=== PATIENT | female | born 1985 | race Caucasian/White ===

== ENCOUNTER 2020-10-06 14:42 | Emergency (ER) | payer BC, MEDICAID, SELFPAY ==
[2020-10-06 14:56] VITALS: BP 127/87; PULSE 88; RESP 19; TEMP 36.6; O2SAT 98; BMI 36.2
--- NOTE | 2020-10-06 15:12 | HMH.EDUTC ---
[facility] Disposition Clinical Impression: Close exposure to COVID-19 virus Disposition: Home, Self-Care Condition on Discharge: Good Instructions: Preventing the Spread of Coronavirus Discharge Instructions Additional Instructions: *Monitor Temp, Over the counter Motrin or Tylenol as directed/as needed Tylenol every 4 hours and Motrin every 6 hours (as long as your family doctor has told you that you can take it) for fever or pain. and straight to ER if unable to lower temp less than 101.0 after medication given *Warm salt water gargles may help to soothe the throat *Throat Lozenges *Warm fluids like tea with honey may help to soothe the throat *Sleep elevated *Humidifier/Vaporizer Follow up IMMEDIATELY for new or worsening symptoms or no Noticeable improvement over the next 48-72 hours. 911 for difficulty breathing or swallowing You were tested for today for COVID19 your test result should be back in the next 24-48 hours, you may call to the [facility] to see if your test results are back in the next 48 hours [phone] [facility] hours are 9am-9pm You was given a handout with instructions for Self Quarantine and Self isolation for while you wait on test results and what to do if they are positive If you are positive the Health Dept will be contacting you also Referrals: PCP,No [Primary Care Provider] - As needed Forms: Work/School Release Time of Disposition: 15:13 Medical Decision Making - Freddie Inquiry Pt receiving controlled substance: No Freddie was queried for this patient: No Vital Signs: 10/06/20 14:56 Temperature 97.8 F Temperature Source Oral Pulse Rate [Radial] 88 Respiratory Rate 19 Blood Pressure [Right Arm] 127/87 Blood Pressure Mean [Right Arm] 100 Blood Pressure Source [Right Arm] Automatic Cuff Blood Pressure Position [Right Arm] Sitting 02 Sat by Pulse Oximetry 98 Oxygen Delivery Method Room Air Orders (Tests/Meds): ORDERS Category Date Time Status Covid-19 Nasal PCR Sendout [facility] 10/06/20 14:48 Ordered [facility] HPI - General Stated complaint: Covid test Time Seen by Provider: 10/06/20 15:12 Mode of Arrival: Ambulatory Source of Information: Patient Limitations: No Limitations Description of Symptoms (Recalled from Triage Doc. by RN): covid exposure, no symptoms HEENT Symptoms (Recalled from RN notes): No Resp Symptoms (Recalled from RN notes): No Skin Symptoms (Recalled from RN notes): No MS Symptoms (Recalled from RN notes): No Functional Status (Recalled from RN notes): wnl - History of Present Illness Provider Complaint: Patient states that she brought someone into the [facility] to be tested for COVID States that he tested positive and she was around him States taht she isnt having any symptoms but wants to get tested - Related Data Allergies Allergy/AdvReac Type Severity Reaction Status Date / Time azithromycin Allergy Verified 10/06/20 15:00 codeine Allergy Verified 10/06/20 15:00 Penicillins Allergy Verified 10/06/20 15:00 Sulfa (Sulfonamide Allergy Verified 10/06/20 15:00 Antibiotics) - Worker's Comp Is this a Worker's Comp case?: No [facility] History - Hepatitis A Screen Drug use history?: No High risk sexual behaviors?: No History of sexually transmitted infection?: No Currently employed?: No Childcare worker?: No Do you have indoor plumbing?: Yes Do you have electricity?: Yes Attestation statement:: This patient has been screened for Hepatitis A risk factors. I have reviewed the patient's past medical history: Yes - Social History Alcohol Intake: never Occupational Status: other ROS Obtained: Yes All systems reviewed & no additional complaints, Yes Systems reviewed as appropriate & no additional complaints - Constitutional Constitutional: Reports system reviewed and no additional complaints, except as docu, Denies body ache, Denies chills, Denies fever(s), Denies headache(s) - ENT Ears, Nose, Mouth, and Throat: Reports system reviewed and
[2020-10-06 15:53] VITALS: BP 127/87; PULSE 88; RESP 19; TEMP 36.6; O2SAT 98
[2020-10-08 14:09] LABS: Covid-19 Nasal PCR Sendout Lex Not Detected
== END 2020-10-06 15:54 | disposition home or self-care (01) ==
PROVIDERS: Emergency Provider Nurse Practitioner; PCP Family Medicine
DX: Z20.828 Contact with and (suspected) exposure to other viral communicable diseases (principal)
CPT/HCPCS: 99201; U0004

== ENCOUNTER 2021-08-17 03:43 | Emergency (ER) | payer BC, SELFPAY ==
[2021-08-17 04:03] VITALS: BP 143/103; PULSE 83; RESP 16; TEMP 37; O2SAT 99; BMI 34.7
--- NOTE | 2021-08-17 04:19 | HMH.EDHA ---
ED Disposition Clinical Impression: Migraine Qualifiers: Migraine type: unspecified Status migrainosus presence: without status migrainosus Intractability: not intractable Qualified Code(s): G43.909 - Migraine, unspecified, not intractable, without status migrainosus Disposition: Home, Self-Care Condition on Discharge: Good Instructions: DI for Migraine Additional Instructions: fluids and see pcp for follow up Referrals: Provider,Referral, MD [Primary Care Provider] - - Critical Care Critical Care Time: No Attestation: On 08/17/21, the high probability of a clinically significant, sudden or life threatening deterioration of the following system(s) required my full and direct attention, intervention and personal management. The time I documented below is in addition to time spent performing reported procedures but includes the following listed in this critical care notation. Medical Decision Making - Medical Records Medical records reviewed: Yes: I reviewed the patient's medical records. - Freddie Inquiry Pt receiving controlled substance: No Vital Signs: 08/17/21 04:03 Temperature 98.6 F Temperature Source Oral Pulse Rate [Apical] 83 Respiratory Rate 16 Blood Pressure [Right Arm] 143/103 H Blood Pressure Mean [Right Arm] 116 Blood Pressure Source [Right Arm] Automatic Cuff Blood Pressure Position [Right Arm] Sitting 02 Sat by Pulse Oximetry 99 Oxygen Delivery Method Room Air - Lab Data Lab results reviewed: Yes: I reviewed the patient's lab results. Orders (Tests/Meds): ED MEDICATIONS Generic Name Dose Route Start Last Admin Trade Name Freq PRN Reason Stop Dose Admin Sodium Chloride 1,000 mls @ 999 mls/hr 08/17/21 04:15 08/17/21 04:12 Sod Chlor 0.9% 1000ml Bag IV 08/17/21 05:15 999 mls/hr .Q1H1M ALPA Administration Discontinued Medications Generic Name Dose Route Start Last Admin Trade Name Freq PRN Reason Stop Dose Admin Ketorolac Tromethamine 30 mg 08/17/21 04:09 08/17/21 04:12 Ketorolac 30mg/Ml Vial IV 08/17/21 04:10 30 mg ONCE ONE Administration Methylprednisolone Sodium Succinate 125 mg 08/17/21 04:09 08/17/21 04:12 Methylprednisolone Sod Succ 125mg Vial IV 08/17/21 04:10 125 mg ONCE ONE Administration Ondansetron HCl 4 mg 08/17/21 04:09 08/17/21 04:12 Ondansetron 4mg/2ml Vial IV 08/17/21 04:10 4 mg ONCE ONE Administration Medical Decision Narrative: has known migraine with stable exam - no indications for ct head Headache HPI - General Chief Complaint: Headache Stated Complaint: BLUNT,Nausea Time Seen by Provider: 08/17/21 04:19 Mode of Arrival: Ambulatory Source of Information: Patient, Medical Record Limitations: No Limitations Description of Symptoms (Recalled from ER Triage Doc. by RN): patient states she has had a migraine for 4 days. States that it has not eased up. Woke up this morning at 0200 with nausea. States that she is unable to vomit due to a suhail fundoplication surgery that she has had in the past. Patient states that she has taken several different medications over the weekend but nothing has eased the pain. - History of Present Illness HPI Narrative: has headache over the last 4 days with nausea - no fever/trauma/rash and no focal neuro sx - MD Complaint: migraine Onset (ago): day(s) Onset description: gradual Location: left, frontal, temporal Severity: similar to previous episodes Quality: similar to previous headaches Context: occurred at rest Associated symptoms: none Treatments prior to arrival: acetaminophen, ibuprofen, prescription analgesic, migraine medication - Related Data Allergies Allergy/AdvReac Type Severity Reaction Status Date / Time azithromycin Allergy Verified 10/06/20 15:00 codeine Allergy Verified 10/06/20 15:00 Penicillins Allergy Verified 10/06/20 15:00 Sulfa (Sulfonamide Allergy Verified 10/06/20 15:00 Antibiotics) [facility] History - Hepatitis A Screen D
[2021-08-17 05:00] VITALS: BP 145/103; PULSE 83; RESP 18; TEMP 37; O2SAT 99
== END 2021-08-17 05:01 | disposition home or self-care (01) ==
PROVIDERS: Emergency Provider Emergency Medicine
DX: G43.909 Migraine, unspecified, not intractable, without status migrainosus (principal)
CPT/HCPCS: 96365; 96375; 99281; J2405

== ENCOUNTER → 2021-11-26 08:52 | Outpatient (CLI) | payer BC, SELFPAY ==
[2021-11-27 15:11] LABS: Covid-19 Nasal PCR Sendout Lex NOT DETECTED
== END ==
PROVIDERS: Visit Provider Nurse Practitioner
DX: Z20.822 Contact with and (suspected) exposure to COVID-19 (principal)
CPT/HCPCS: C9803; U0004; U0005

== ENCOUNTER 2021-12-29 20:55 | Emergency (ER) | payer BC, SELFPAY ==
[2021-12-29 20:57] VITALS: BP 128/93; PULSE 118; RESP 22; TEMP 37.4; O2SAT 99; BMI 34.0
[2021-12-29 21:29] VITALS: BMI 34.0
[2021-12-29 21:30] VITALS: BP 128/93; PULSE 89; RESP 20; O2SAT 98
--- NOTE | 2021-12-29 21:50 | CT_ITS ---
PROCEDURE INFORMATION: Exam: CT Abdomen And Pelvis With Contrast Exam date and time: 12/29/2021 9:50 PM Age: 36 years old Clinical indication: Abdominal pain and other: Pelvic; Additional info: Pelvic pain w/ nausea TECHNIQUE: Imaging protocol: Computed tomography of the abdomen and pelvis with contrast. Radiation optimization: All CT scans at this facility use at least one of these dose optimization techniques: automated exposure control; mA and/or kV adjustment per patient size (includes targeted exams where dose is matched to clinical indication); or iterative reconstruction. Contrast material: ISOVUE; Contrast volume: 75 ml; Contrast route: IV; COMPARISON: No relevant prior studies available. FINDINGS: PANCREATICOHEPATOBILIARY: Probable diffuse fatty infiltration. No significant intra-or extrahepatic biliary ductal dilation. Cholecystectomy clips in the gallbladder fossa. Pancreas and spleen are unremarkable. . GENITOURINARY: No adrenal mass. Indeterminate renal cystic nodule(s). Nonobstructive punctate LEFT renal stone(s) measuring 1-3 mm. Mild fullness of the renal collecting systems and ureters bilaterally with 2 mm calculus within the urinary bladder adjacent to the LEFT vesicoureteric junction. Partially distended urinary bladder. Uterus is normal, ovarian cysts/follicles. No free fluid in the pelvis. . GASTROINTESTINAL: Evidence of colonic diverticulosis. Prominent air and fluid-filled loops of proximal small bowel in the LEFT upper abdomen likely within normal limits. Wall thickening of the distal thoracic esophagus suggestive of esophagitis/reflux. No free intraperitoneal air or fluid collection. A normal APPENDIX is visualized. . OTHER STRUCTURES: Aorta appears unremarkable without evidence of aortic aneurysm. Normal size and mildly enlarged mesenteric/retroperitoneal lymph nodes. Focal periumbilical hernia containing fat with soft tissue thickening without fluid collection. IMPRESSION: 1. Findings suggestive of recent passage of ureteric calculus versus 2 mm calculus at LEFT vesicoureteric junction. Recommend correlation with urinary analysis. 2. Other nonemergent/incidental findings as described.
[2021-12-29 21:52] LABS: Microscopic, Urine URINE MICROSCOPIC (MICROSCOPIC)
[2021-12-29 22:00] VITALS: BP 116/78; PULSE 82; RESP 23; O2SAT 100
[2021-12-29 22:03] LABS: Basophils # 0.1 K/mm3 (0-0.2); Basophils % 0.4 % (0.1-2.0); Eosinophils # 0.1 K/mm3 (0.0-0.4); Eosinophils % 0.7 % (0.1-12.0); Hematocrit 41.2 % (37.0-47.0); Hemoglobin 12.8 g/dL (12.2-16.2); Lymphocytes # 1.6 K/mm3 (0.7-4.5); Lymphocytes % 11.7 % (10-50); Mean Corpuscular HGB Conc 31.1 g/dL (31.8-35.4); Mean Corpuscular Hemoglobin 28.6 pg (27.0-31.2); Mean Corpuscular Volume 91.8 fl (81-99); Mean Platelet Volume 9.1 fl (7.4-10.4); Monocytes # 0.1 K/mm3 (0.1-1.0); Monocytes % 0.9 % (1.7-9.3); Neutrophils # 11.5 K/mm3 (1.8-7.8); Neutrophils % 86.3 % (37.0-80.0); Platelet Count 280 K/mm3 (142-424); Red Blood Count 4.49 M/mm3 (4.20-5.40); Red Cell Distribution Width 14.3 % (11.5-17.5); White Blood Count 13.3 K/mm3 (4.8-10.8)
[2021-12-29 22:13] LABS: Strep Scrn Group A (Rapid) Negative (Negative)
[2021-12-29 22:14] LABS: MANUAL DIFFERENTIAL MANUAL DIFFERENTIAL (MANUAL DIFF)
[2021-12-29 22:18] LABS: Alanine Aminotransferase 21 U/L (12-78); Alkaline Phosphatase 51 U/L (38-126); Amylase 63 U/L (30-110); Anion Gap 14.3 mEq/L (5-15); Aspartate Amino Transferase 33 U/L (14-36); Bilirubin,Total 1.2 mg/dl (0.2-1.3); Blood Urea Nitrogen 13 mg/dl (7-17); Carbon Dioxide 21 mmol/L (22.0-30.0); Chloride 107 mmol/L (98-107); Creatinine Clearance Estimated 151 mL/min (50-200); Estimated Glomerular Filt Rate 96 ml/min (>60); GFR (African American) 116 ML/MIN (>60); Glucose 102 mg/dl (74-100); Lipase 47 U/L (23-300); Potassium 3.3 mmoL/L (3.5-5.1); Sodium 139 mmol/L (136-145)
[2021-12-29 22:23] LABS: C-Reactive Protein 1.2 mg/L (0-4)
[2021-12-29 22:27] LABS: Total Protein,Serum 11.8 g/dl (6.3-8.2)
[2021-12-29 22:28] LABS: HCG Qualitative, Serum Negative (Negative)
[2021-12-29 22:30] VITALS: BP 111/65; PULSE 87; RESP 17; O2SAT 99
[2021-12-29 22:36] LABS: Lactic Acid 1.5 mmol/L (0.7-2.1)
[2021-12-29 22:40] LABS: Procalcitonin < 0.030 ng/mL (0.0-2.0)
[2021-12-29 22:44] LABS: Albumin Level > 6.0 g/dl (3.5-5.0); Globulin 5.8 g/dL (1.3-3.2)
[2021-12-29 22:53] LABS: Appearance,Urine CLEAR (Clear); Bilirubin,Urine Negative (Negative); Blood, Urine Negative (Negative); Color,Urine ORANGE (Yellow); Glucose,Urine (UA) 1+ (Negative); Ketones,Urine Negative (Negative); Leukocyte Esterase,Urine TRACE (Negative); Nitrate,Urine POSITIVE (Negative); PH,Urine 5.5 (5.0-8.5); Protein,Urine 2+ (Negative); Specific Gravity, Urine >= 1.030 (1.005-1.030); Urobilinogen,Urine >=8.0 EU/dl (0.2)
[2021-12-29 23:00] VITALS: BP 113/73; PULSE 78; RESP 20; O2SAT 99
[2021-12-29 23:14] LABS: Erythrocyte Sedimentation Rate 38 mm/hr (0-20)
[2021-12-29 23:20] LABS: Bacteria,Urine 1+ /lpf; Mucus,Urine 1+ /lpf
--- NOTE | 2021-12-29 23:43 | HMH.EDNVD ---
ED Disposition Clinical Impression: Renal colic on left side Disposition: Home, Self-Care Condition on Discharge: Good Instructions: DI for Kidney Stones Additional Instructions: fluids and see pcp and urology for follow up Referrals: Andrew Vasquez MD [Primary Care Provider] - Paul Barber MD [Staff Physician] - - Critical Care Critical Care Time: No Attestation: On 12/29/21, the high probability of a clinically significant, sudden or life threatening deterioration of the following system(s) required my full and direct attention, intervention and personal management. The time I documented below is in addition to time spent performing reported procedures but includes the following listed in this critical care notation. Medical Decision Making - Medical Records Medical records reviewed: Yes: I reviewed the patient's medical records. - Freddie Inquiry Pt receiving controlled substance: No Vital Signs: 12/29/21 20:57 12/29/21 21:30 12/29/21 22:00 Temperature 99.3 F Temperature Source Oral Pulse Rate 89 82 Pulse Rate [Right] 118 H Respiratory Rate 22 20 23 Blood Pressure 128/93 H 116/78 Blood Pressure [Right Arm] 128/93 H Blood Pressure Mean [Right Arm] 104 Blood Pressure Source [Right Arm] Automatic Cuff 02 Sat by Pulse Oximetry 99 98 100 Oxygen Delivery Method Room Air Room Air Room Air 12/29/21 22:30 12/29/21 23:00 Temperature Temperature Source Pulse Rate 87 78 Pulse Rate [Right] Respiratory Rate 17 20 Blood Pressure 111/65 113/73 Blood Pressure [Right Arm] Blood Pressure Mean [Right Arm] Blood Pressure Source [Right Arm] 02 Sat by Pulse Oximetry 99 99 Oxygen Delivery Method Room Air Room Air - Lab Data Lab results reviewed: Yes: I reviewed the patient's lab results. Lab Results 12/29/21 21:05: Urine Color Garza, Urine Appearance Clear, Urine pH 5.5, Ur Specific [place] >= 1.030, Urine Protein 2+, Urine Glucose (UA) 1+, Urine Ketones Negative, Urine Blood Negative, Urine Nitrate Positive, Urine Bilirubin Negative, Urine Urobilinogen >=8.0, Ur Leukocyte Esterase Trace, Urine WBC 3-5, Ur Squamous Epith Cells 5-10, Urine Bacteria 1+, Urine Mucus 1+ 12/29/21 21:18: WBC 13.3 H, RBC 4.49, Hgb 12.8, Hct 41.2, MCV 91.8, MCH 28.6, MCHC 31.1 L, RDW 14.3, Plt Count 280, MPV 9.1, Neut % (Auto) 86.3 H, Lymph % (Auto) 11.7, Ward % (Auto) 0.9 L, Eos % (Auto) 0.7, Baso % (Auto) 0.4, Neut # (Auto) 11.5 H, Lymph # (Auto) 1.6, Ward # (Auto) 0.1, Eos # (Auto) 0.1, Baso # (Auto) 0.1, Total Counted 100, Neutrophils % (Manual) 89 H, Lymphocytes % (Manual) 11, Platelet Estimate Normal, RBC Morphology Not Reportable, Stomatocytes 1+, ESR 38 H 12/29/21 21:18: Sodium 139, Potassium 3.3 L, Chloride 107, Carbon Dioxide 21 L, Anion Gap 14.3, BUN 13, Creatinine 0.70, Estimated Creat Clear 151, Estimated GFR 96, Est GFR ( Amer) 116, Glucose 102 H, Calcium 9.0, Total Bilirubin 1.2, AST 33, ALT 21, Alkaline Phosphatase 51, C-Reactive Protein 1.2, Total Protein 11.8 H, Albumin > 6.0 H, Globulin 5.8 H, Albumin/Globulin Ratio 1.0 L, Amylase 63, Lipase 47, Procalcitonin < 0.030 12/29/21 21:18: Serum HCG, Qual Negative 12/29/21 21:18: Group A Strep Rapid Negative 12/29/21 21:18: Lactate 1.5 Result diagrams: 12/29/21 21:18 12/29/21 21:18 Orders (Tests/Meds): ED MEDICATIONS Generic Name Dose Route Start Last Admin Trade Name Freq PRN Reason Stop Dose Admin Sodium Chloride 1,000 mls @ 999 mls/hr 12/29/21 22:00 12/29/21 21:53 Sod Chlor 0.9% 1000ml Bag IV 12/29/21 23:00 999 mls/hr .Q1H1M ALPA Administration Discontinued Medications Generic Name Dose Route Start Last Admin Trade Name Freq PRN Reason Stop Dose Admin Iopamidol 75 ml 12/29/21 22:57 12/29/21 22:58 Iopamidol-370 (76%);100ml Bottle IV 12/29/21 22:58 75 ml ONCE ONE Administration Ketorolac Tromethamine 30 mg 12/29/21 22:35 12/29/21 22:37 Ketorolac 30mg/Ml Vial IV 12/29/21 22:36 30 mg ONCE ONE
[2021-12-30 00:15] LABS: Lymphocytes % 11 % (10-50); Neutrophils % 89 % (42-76); Platelet Estimate Normal; Stomatocytes 1+; Total Cells Counted 100
[2021-12-30 00:34] VITALS: BP 142/94; PULSE 70; RESP 14; TEMP 37.2; O2SAT 99
== END 2021-12-30 00:50 | disposition home or self-care (01) ==
PROVIDERS: Emergency Provider Emergency Medicine; PCP Family Medicine
DX: N23 Unspecified renal colic (principal); R10.32 Left lower quadrant pain
CPT/HCPCS: 74177; 80053; 81001; 82150; 83605; 83690; 84145; 84703; 85007; 85025; 85651; 86140; 87040; 87086; 87430; 96365; 96375; 99284; J2405; Q9967

== ENCOUNTER → 2022-03-07 15:52 | Outpatient (CLI) | payer BC, SELFPAY ==
--- NOTE | 2022-03-07 15:53 | US_ITS ---
FINAL REPORT CLINICAL HISTORY: DUB: light, brown spotting during periods FINDINGS: Transvaginal sonographic images of the pelvis were obtained. The uterus measures 6 x 3 x 4 cm. The endometrium measures 7 mm, which is within normal limits. No uterine mass is identified. The right ovary measures 2.5 cm in length and left ovary measures 4.0 cm in length. Normal blood flow seen to the ovaries. There is a 2.3 cm mildly complicated cystic mass arising from the left ovary. Small amount of free fluid is seen in the posterior cul-de-sac. IMPRESSION: 2.3 cm mildly complicated left ovarian cystic mass. Consider follow-up ultrasound in 6-8 weeks. Reviewed, Interpreted and Dictated by Ezekiel Harley III, MD Transcribed by Earnestine Song Authenticated by Ezekiel Harley III, MD on 03/07/2022 05:07:[address] [facility]
== END ==
PROVIDERS: PCP Obstetrics & Gynecology; Visit Provider Obstetrics & Gynecology
DX: N93.8 Other specified abnormal uterine and vaginal bleeding (principal)
CPT/HCPCS: 76830

== ENCOUNTER → 2022-04-25 12:49 | Outpatient (CLI) | payer BC, SELFPAY ==
--- NOTE | 2022-04-25 12:50 | US_ITS ---
FINAL REPORT CLINICAL HISTORY: follow up on ovarian cyst COMPARISON: 03/07/2022 FINDINGS: Transvaginal sonographic images of the pelvis were obtained. The uterus measures 4 x 6 x 4 cm and is retroverted.. The endometrium measures 6 mm, which is within normal limits. No uterine mass is identified. The right ovary measures 3 cm in length and left ovary measures 3 cm in length. Small follicles is are seen arising from the rib ovary. There has been interval improvement of the left ovarian cyst. Normal blood flow seen to the ovaries. There is no evidence of free fluid. IMPRESSION: Interval improvement in left ovarian cyst. Reviewed, Interpreted and Dictated by Ezekiel Harley III, MD Transcribed by Earnestine Song Authenticated and [facility]
== END ==
PROVIDERS: PCP Family Medicine; Visit Provider Obstetrics & Gynecology
DX: N83.209 Unspecified ovarian cyst, unspecified side (principal)
CPT/HCPCS: 76830

== ENCOUNTER 2025-02-25 10:00 | Outpatient (RCR) | payer BC, SELFPAY | END 2025-02-25 23:59 | disposition home or self-care (01) | LOC: OT 10:00 | PROVIDERS: PCP Family Medicine; Visit Provider Neuromusculoskeletal Medicine, Sports Medicine | DX: Z98.890 Other specified postprocedural states (principal) | CPT/HCPCS: 97014; 97110; 97140; 97165; G0283 ==

== ENCOUNTER 2025-03-21 11:00 | Outpatient (RCR) | payer BC, SELFPAY | END 2025-03-21 23:59 | disposition home or self-care (01) | LOC: PT 11:00 | PROVIDERS: PCP Nurse Practitioner; Visit Provider Nurse Practitioner | DX: M54.2 Cervicalgia (principal) | CPT/HCPCS: 97014; 97035; 97110; 97140; 97163; 97530; G0283 ==

== ENCOUNTER 2025-03-27 10:00 | Outpatient (RCR) | payer BC, SELFPAY | END 2025-03-27 23:59 | disposition home or self-care (01) | LOC: OT 10:00 | PROVIDERS: PCP Family Medicine; Visit Provider Family Medicine | DX: Z48.89 Encounter for other specified surgical aftercare (principal) | CPT/HCPCS: 97014; 97110; 97140; G0283 ==

== ENCOUNTER 2025-04-18 09:00 | Outpatient (RCR) | payer BC, SELFPAY | END 2025-04-18 23:59 | disposition home or self-care (01) | LOC: PT 09:00 | PROVIDERS: PCP Nurse Practitioner; Visit Provider Nurse Practitioner | DX: M54.2 Cervicalgia (principal) | CPT/HCPCS: 97014; 97032; 97110; 97140; 97164; G0283 ==

== ENCOUNTER 2025-04-24 09:00 | Outpatient (RCR) | payer BC, SELFPAY | END 2025-04-24 23:59 | disposition home or self-care (01) | LOC: OT 09:00 | PROVIDERS: PCP Family Medicine; Visit Provider Family Medicine | DX: Z47.89 Encounter for other orthopedic aftercare (principal); Z98.890 Other specified postprocedural states | CPT/HCPCS: 97014; 97110; 97140; 97168; G0283 ==

== ENCOUNTER → 2025-05-22 08:00 | Outpatient (RCR) | payer BC, SELFPAY | LOC: PT 05-05 07:57 | PROVIDERS: PCP Nurse Practitioner; Visit Provider Nurse Practitioner | DX: M54.2 Cervicalgia (principal) | CPT/HCPCS: 97014; 97110; 97140; 97164; G0283 ==

== ENCOUNTER 2025-05-29 10:00 | Outpatient (RCR) | payer BC, SELFPAY | END 2025-05-29 23:59 | disposition home or self-care (01) | LOC: OT 10:00 | PROVIDERS: PCP Family Medicine; Visit Provider Family Medicine | DX: Z48.89 Encounter for other specified surgical aftercare (principal) | CPT/HCPCS: 97014; 97110; 97140; 97168; G0283 ==

== ENCOUNTER 2025-06-25 14:00 | Outpatient (RCR) | payer BC, SELFPAY | END 2025-06-25 23:59 | disposition home or self-care (01) | LOC: OT 14:00 | PROVIDERS: PCP Family Medicine; Visit Provider Family Medicine | DX: Z47.89 Encounter for other orthopedic aftercare (principal); Z98.890 Other specified postprocedural states | CPT/HCPCS: 97014; 97110; 97140; G0283 ==

== ENCOUNTER 2025-09-17 13:57 | Outpatient (RCR) | payer BC, SELFPAY | END 2025-09-17 23:59 | disposition home or self-care (01) | LOC: PT 13:57 | PROVIDERS: PCP Family Medicine; Visit Provider Nurse Practitioner | DX: S29.012D Strain of muscle and tendon of back wall of thorax, subsequent encounter (principal); G47.10 Hypersomnia, unspecified; X58.XXXD Exposure to other specified factors, subsequent encounter | CPT/HCPCS: 97161 ==

== ENCOUNTER 2025-10-16 09:00 | Outpatient (RCR) | payer BC, SELFPAY | END 2025-10-16 23:59 | disposition home or self-care (01) | LOC: PT 09:00 | PROVIDERS: PCP Family Medicine; Visit Provider Nurse Practitioner | DX: S29.012A Strain of muscle and tendon of back wall of thorax, initial encounter (principal); G47.10 Hypersomnia, unspecified | CPT/HCPCS: 97110; 97140 ==